=== PATIENT | male | born 1980 | race Caucasian/White ===

== ENCOUNTER 2022-06-24 12:45 | Emergency (ER) | payer SELFPAY ==
[~2022-06-24] VITALS: Ht 170.1 cm; Wt 88.5 kg
[2022-06-24] MEDS ORDERED: TOBRAMYCIN 5 ML5 M2 OPH (15:26)
== END 2022-06-24 15:46 | disposition home or self-care (01) ==
LOC: ED 12:45
DX: H11.31 Conjunctival hemorrhage, right eye (principal); Z91.040 Latex allergy status